=== PATIENT | female | born 1985 | race Caucasian/White ===

== ENCOUNTER 2019-09-04 15:23 | Emergency (ER) | payer BC, SELFPAY ==
[2019-09-04 15:34] VITALS: BP 130/75; PULSE 74; RESP 16; TEMP 36.7; O2SAT 99
--- NOTE | 2019-09-04 15:41 | ED.URI ---
HPI - URI/Sore Throat General Chief Complaint: Upper Respiratory Infection Stated Complaint: sore throat/spots on throat Time Seen by Provider: 09/04/19 15:41 Source: patient and RN notes reviewed Mode of arrival: ambulatory Limitations: no limitations History of Present Illness HPI Narrative: This is a 33 years old female presented office for an evaluation of sore throat for the last 3-day. Symptoms began with slight scratchy and is worse today. She also noticed some white spots. She took Tylenol this morning. Denies sick contact. Denies history of mono, however she was positive for strep in March. Related Data Allergies Allergy/AdvReac Type Severity Reaction Status Date / Time codeine Allergy Unknown Nausea Verified 09/04/19 15:46 Review of Systems Review of Systems: Narrative: GENERAL: Denies fever or decreased activity EYES: Denies any eye discharge or redness. ENT: Denies any runny nose,throat or ear pulling/pain RESP: Denies any wheezing, difficulty breathing, cough. CARDIOVASCULAR: Denies any rapid heart rate ABDOMINAL: Denies any decrease in appetite. : Denies any decreased urine frequency SKIN: Denies any rash MUSCULOSKELETAL: Denies any extremity pain NEURO: Denies any lethargy PSYCH: Denies abnormal interaction with family All other systems reviewed are negative, except as documented in HPI. [facility] Past Medical History Medical History Anemia History of abnormal uterine bleeding History of rectal polyps Surgical History Surgical History Hx of right knee surgery Comments At time of signature, I agree with nursing past medical, surgical, social and family history. There is no relevant family history pertinent to the presenting complaint. Exam Narrative: Exam Narrative: GENERAL: This is a well-nourished, well-developed patient, in no apparent distress. EARS: External ears normal, auditory canals clear and without drainage, TMs normal without perforation. Hearing grossly intact. NOSE: External nose normal with no obvious nasal discharge, nares without redness, no rhinorrhea. THROAT: Mucous membranes moist, posterior pharynx erythema, tonsils 2+ with exudate NECK: Neck supple, non-tender without lymphadenopathy, masses or thyromegaly. CARDIOVASCULAR: Regular rate and rhythm without murmurs, gallops, or rubs. RESPIRATORY: Clear to auscultation. Breath sounds equal bilaterally. No wheezes, rales, or rhonchi. GASTROINTESTINAL: Abdomen soft, non-tender, nondistended. Bowel sounds are active. No hepato-splenomegaly, or palpable masses. No guarding. SKIN: warm, intact with no suspicious lesions or rash, good texture and turgor. NEURO: awake, alert, and oriented to person, place and time. There were no obvious focal neurologic abnormalities. Steady gait [place] Coma Scale Eye Opening: Spontaneous 4 [place] Coma Scale Motor: Obeys Commands 6 [place] Coma Scale Verbal: Oriented 5 Course Vital Signs Vital signs: Vital Signs Temperature 98.1 F 09/04/19 15:34 Pulse Rate 74 09/04/19 15:34 Respiratory Rate 16 09/04/19 15:34 Blood Pressure 130/75 09/04/19 15:34 Pulse Oximetry 99 09/04/19 15:34 Temperature 98.1 F 09/04/19 15:34 Pulse Rate 74 09/04/19 15:34 Respiratory Rate 16 09/04/19 15:34 Blood Pressure 130/75 09/04/19 15:34 Pulse Oximetry 99 09/04/19 15:34 MDM - URI/Sore Throat MDM Narrative Medical decision making narrative: Discharge instructions reviewed with patient, as well as provided in writing per nursing staff. The instructions also include specific and strict return/GO TO THE ER as well as f/u information. All questions have been answered, and the patient deny any further questions with discharge and discharge plan. Differential Diagnosis Differential diagnosis: Likely upper respiratory infection, otitis media, sinusitis, viral infection, bron
== END 2019-09-04 16:10 | disposition home or self-care (01) ==
PROVIDERS: Emergency Provider Nurse Practitioner; PCP Physician Assistant
DX: J03.90 Acute tonsillitis, unspecified (principal)
CPT/HCPCS: 86308; 87081; 87880; 99213; G0463

== ENCOUNTER 2019-11-25 12:02 | Outpatient (CLI) | payer BC, SELFPAY ==
--- NOTE | ~2019-11-25 | CT_ITS ---
EXAMINATION: CT abdomen pelvis w con DATE: 11/25/2019 12:59 INDICATION: Left lower quadrant abdominal pain TECHNIQUE: Computed tomography (CT) of the abdomen and pelvis was performed with 100 cc Omnipaque 350 intravenous contrast. Automated exposure control and iterative reconstruction technique were employe d. Exam dose: 1200.41 mGy-cm total exam DLP. COMPARISON: None. FINDINGS: There is minimal bilateral lower lobe dependent atelectasis. Normal heart size. No pericardial or pleural effusion. The liver, gallbladder, bile ducts, spleen, pancreas, pancreatic duct, and adrenal glands and kidneys are unremarkable except for a very small likely hepatic cyst (series 3 image 52) and a solitary panc reatic calcification which may indicate mild chronic pancreatitis. No bile duct or pancreatic duct dilatation. No urinary tract calculus or hydroureteronephrosis is evident. Normal caliber of the abdominal aorta. No intraperitoneal or retroperitoneal or pelvic mass lesion or adenopathy or ascites. Diverticulosis of the colon, primarily the transverse colon area. No CT evidence of diverticulitis. N o evidence of appendicitis. No bowel obstruction, bowel wall thickening, pneumatosis or intraperitone al free air is detected. Status post hysterectomy. Left ovarian follicles are noted. No ovarian enlargement is evident. No suspicious osteolytic or osteoblastic lesions are noted. IMPRESSION: Small hepatic cyst Minimal chronic pancreatitis is suggested. Diverticulosis of the colon; no evidence of diverticulitis Status post hysterectomy Reviewed, dictated and finalized at [facility]. Reviewed, dictated and finalized at [facility].
== END 2019-11-25 12:03 | disposition home or self-care (01) ==
LOC: ANHIMG 12:04
PROVIDERS: PCP Physician Assistant; Visit Provider Physician Assistant
DX: R10.32 Left lower quadrant pain (principal); K76.89 Other specified diseases of liver; K86.1 Other chronic pancreatitis; K57.90 Diverticulosis of intestine, part unspecified, without perforation or abscess without bleeding; Z90.710 Acquired absence of both cervix and uterus
CPT/HCPCS: 74177; Q9967